=== PATIENT | female | born 1950 | race Caucasian/White ===

== ENCOUNTER 2017-12-12 12:59 | Outpatient (CLI) | payer MEDICARE | END 2017-12-12 13:00 | disposition short-term general hospital (02) | LOC: EMS 12:59 | PROVIDERS: ATTEND Surgery | DX: R07.9 Chest pain, unspecified (principal) | CPT/HCPCS: A0425; A0427 ==

== ENCOUNTER 2020-10-31 14:28 | Outpatient (CLI) | payer MEDICARE, OTHER | END 2020-10-31 14:29 | disposition home or self-care (01) | LOC: COV 14:28 | PROVIDERS: ATTEND Family Medicine | DX: Z20.822 Contact with and (suspected) exposure to COVID-19 (principal) ==